=== PATIENT | male | born 1955 | race Two or more races ===

== ENCOUNTER 2024-08-19 09:25 | Day surgery (SDC) | payer MEDICARE, MEDICAID, SELFPAY ==
[2024-08-19] VITALS (15 sets, daily range): BP systolic 118–140; BP diastolic 69–97; PULSE 70–79; RESP 10–20; TEMP 36.3–36.4; O2SAT 93–100; BMI 33.8
[2024-08-19] MEDS: SODIUM CHLORIDE 0.9% 500 ML 500 ML 20 ML IV (12:09)
[2024-08-19] MEDS: fentaNYL CIT INJ 50 mCg/ML AMP 2ML (ASD USE ONLY) IV (12:10)
[2024-08-19] MEDS: MIDAZOLAM INJ 1 MG/ML VIAL 2 ML (ASD USE ONLY) 2 MG IV (12:10)
[2024-08-19] MEDS: DiphenhydrAMINE INJ 50 MG/ML VIAL 25 MG IV (12:12)
== END 2024-08-19 13:05 | disposition home or self-care (01) ==
PROVIDERS: PCP Family Medicine; Referring Provider Internal Medicine Gastroenterology; Visit Provider Internal Medicine Gastroenterology
PROC: 0DBE8ZX Excision of Large Intestine, Via Natural or Artificial Opening Endoscopic, Diagnostic (ICD-10-PCS; CPT 45380; principal; 2024-08-19 09:30)
PROC: (CPT 43239; 2024-08-19 09:30)
DX: K64.3 Fourth degree hemorrhoids (principal); K63.5 Polyp of colon; K57.31 Diverticulosis of large intestine without perforation or abscess with bleeding; K52.9 Noninfective gastroenteritis and colitis, unspecified; K29.71 Gastritis, unspecified, with bleeding; K44.9 Diaphragmatic hernia without obstruction or gangrene; I10 Essential (primary) hypertension; E11.9 Type 2 diabetes mellitus without complications; E78.00 Pure hypercholesterolemia, unspecified; D50.9 Iron deficiency anemia, unspecified
CPT/HCPCS: 45398; 45380; 43239; A4217; A4649; J1200; J2250; J3010; J7040